=== PATIENT | female | born 1950 | race Caucasian/White ===

== ENCOUNTER 2017-01-22 05:40 | Day surgery (SDC) | payer MEDICARE ==
[2017-01-22] MEDS ORDERED: DIPRIVAN 10 MG/ML IV ONE (07:38)
[2017-01-22] MEDS ORDERED: WATER FOR IRRIG STERILE IR ONE (07:40)
[2017-01-22] MEDS ORDERED: XYLOCAINE 1% 20 mL ONE (07:45)
--- NOTE | 2017-01-22 07:57 | Discharge Summary ---
Providers - Providers Attending physician: ROSALIO LEE Primary care physician: NAT WANG Hospitalization Procedures: EGD Hospital course: 66 y.o. presented to out GI for an EGD. She tolerated the procedure well. Disposition: TO HOME OR SELFCARE Core Measure Documentation - Palliative Care Palliative Care/ Comfort Measures: Not Applicable - Core Measures Any of the following diagnoses?: none Exam - Physical Exam Narrative exam: no change from prior Plan Activity: no restrictions Diet: other (per bariatric plan) Follow up with: NAT WANG [Primary Care Provider] - 7 Days
--- NOTE | 2017-01-22 07:58 | Operative Report ---
Operative Report Operative Report: OPERATIVE REPORT - EGD DATE 01/22/17 SURGERY: Upper endoscopy. SURGEON: Zac Felipe M.D. FOOTBALL COACH: Sharon Ureña MD PRE OP DX: dyspepsia POST OP DX:hiatal hernia TYPE OF ANESTHESIA: MAC. ESTIMATED BLOOD LOSS: None. COMPLICATIONS: None. SPECIMENS REMOVED: None. FINDINGS: 1. Small hiatal hernia. 2. Otherwise, normal esophagus, stomach and first portion of duodenum. INDICATIONS:INDICATION FOR PROCEDURE: Patient is a 66-year-old female with a long history of morbid obesity. She is planned to have a weight loss procedure and is here for preoperative planning EGD. PROCEDURE DETAILS: After consent was reviewed, patient was taken back to the operating room where patient was placed in the left lateral decubitus position and a bite block was placed in the mouth. After a time-out was called, MAC anesthesia was initiated. I then passed the endoscope into her oropharynx, into her esophagus, visualized the entire esophagus, which was all within normal limits. I then visualized the stomach and the first portion of the duodenum and there were no abnormalities I could clearly visualize. I then retroflexed the scope in the stomach and visualized the hiatus and I could see a small hiatal hernia. I then desufflated the stomach and removed the endoscope. Patient tolerated procedure well and was transferred to recovery room in good and stable condition.
[2017-01-22] MEDS ORDERED: NACL 0.9% 1000 ML 1,000 ML IV SCH (08:00)
--- NOTE | 2017-01-22 08:03 | Anesthesia Day of Surgery ---
Anesthesia Day of Surgery - Day of Surgery Patient Examined: Yes Patient H&P Reviewed: Yes Patient is NPO: Yes
--- NOTE | 2017-01-22 08:03 | Anesthesia Consultation ---
Anesthesia Consult and Med Hx Date of service: 01/22/17 - Airway Anesthetic Teeth Evaluation: Good ROM Head & Neck: Adequate Mental/Hyoid Distance: Adequate Mallampati Class: Class II Intubation Access Assessment: Probably Good - Pulmonary Exam CTA: Yes - Cardiac Exam Cardiac Exam: RRR - Pre-Operative Health Status ASA Pre-Surgery Classification: ASA3 Proposed Anesthetic Plan: MAC - Pulmonary Hx Smoking: No Hx Sleep Apnea: Yes (mild) - Cardiovascular System Hx Hypertension: Yes Hx Heart Attack/AMI: No - Central Nervous System Hx Seizures: No CVA: No Hx Psychiatric Problems: No - Gastrointestinal Hx Gastroesophageal Reflux Disease: Yes - Endocrine Hx Renal Disease: No Hx Liver Disease: No Hx Insulin Dependent Diabetes: Yes - Other Systems Hx Alcohol Use: No Hx Substance Use: No Hx Cancer: No Hx Obesity: Yes - Additional Comments Anesthesia Medical History Comments: NAC
[2017-01-22 08:46] VITALS: BP 145/66
--- NOTE | 2017-01-22 08:58 | Post Anesthesia Evaluation ---
- Post Anesthesia Evaluation Patient Participated: Yes Airway Patent: Yes Stable Respiratory Function: Yes Nausea/Vomiting: No Temp > 96.8F: Yes Pain Manageable: Yes Adequeate Hydration: Yes Anesthesia Complications: No Block Receding Appropriately: Not Applicable Patient on Ventilator: No
== END 2017-01-22 05:41 | disposition home or self-care (01) ==
LOC: GIO 05:40
PROVIDERS: ATTEND Surgery
DX: K44.9 Diaphragmatic hernia without obstruction or gangrene (principal); E66.01 Morbid (severe) obesity due to excess calories; I10 Essential (primary) hypertension; K21.9 Gastro-esophageal reflux disease without esophagitis; E11.9 Type 2 diabetes mellitus without complications; Z79.4 Long term (current) use of insulin; Z68.37 Body mass index [BMI] 37.0-37.9, adult
CPT/HCPCS: 43235; 82962; J2704; J7030

== ENCOUNTER 2017-01-28 07:30 | Inpatient (IN) | payer MEDICARE ==
[2017-01-27 09:57] LABS: Basophils % (Auto) 0.5 % (0.0-1.8); Eosinophils % (Auto) 1.2 % (0.0-4.3); Hematocrit 40.4 % (30.3-42.9); Hemoglobin 13.5 gm/dl (10.1-14.3); Mean Corpuscular HGB Conc 33 % (30-34); Mean Corpuscular Hemoglobin 28 pg (28-32); Mean Corpuscular Volume 83 fl (79-97); Platelet Count 240 K/mm3 (140-440); Red Blood Count 4.87 M/mm3 (3.65-5.03); Red Cell Distribution Width 14.4 % (13.2-15.2); White Blood Count 5.7 K/mm3 (4.5-11.0)
[2017-01-27 10:05] LABS: Bacteria,Urine 1+ /HPF (Negative); Bilirubin,Urine NEG (Negative); Blood,Urine NEG (Negative); Ketones,Urine NEG (Negative); Leukocyte Esterase,Urine NEG (Negative); Mucus,Urine FEW /HPF; Nitrite,Urine NEG (Negative); Protein,Urine <15 mg/dL mg/dL (Negative); Urobilinogen,Urine < 2.0 mg/dL (<2.0); WBC,Urine < 1.0 /HPF (0.0-6.0)
--- NOTE | 2017-01-27 10:16 | Anesthesia Consultation ---
Anesthesia Consult and Med Hx Date of service: 01/27/17 - Airway Anesthetic Teeth Evaluation: Good (missing a few molars) ROM Head & Neck: Adequate Mental/Hyoid Distance: Adequate Mallampati Class: Class II Intubation Access Assessment: Probably Good - Pulmonary Exam CTA: Yes - Cardiac Exam Cardiac Exam: RRR - Pre-Operative Health Status ASA Pre-Surgery Classification: ASA3 Proposed Anesthetic Plan: General - Pulmonary Hx Smoking: No Hx Sleep Apnea: Yes ("mild", no CPAP machine prescribed) - Cardiovascular System Hx Hypertension: Yes (takes norvasc) - Central Nervous System Hx Psychiatric Problems: No - Endocrine Hx Non-Insulin Dependent Diabetes: Yes - Other Systems Hx Alcohol Use: No Hx Substance Use: No Hx Cancer: No Hx Obesity: Yes - Additional Comments Anesthesia Medical History Comments: Arthritis
[2017-01-27 10:18] LABS: BUN/Creatinine Ratio 21; Blood Urea Nitrogen 15 mg/dL (7-17); Carbon Dioxide 27 mmol/L (22-30); Glucose 86 mg/dL (65-100)
[2017-01-27 10:19] LABS: Alanine Aminotransferase 21 units/L (7-56); Albumin 4.2 g/dL (3.9-5); Albumin/Globulin Ratio 1.2 %; Alkaline Phosphatase 74 units/L (35-129); Anion Gap 17 mmol/L; Calcium 9.3 mg/dL (8.4-10.2); Chloride 104.6 mmol/L (98-107); Potassium 4.4 mmol/L (3.6-5.0); Sodium 144 mmol/L (137-145); Total Protein 7.8 g/dL (6.3-8.2)
[~2017-01-28 07:30] MED LIST: NACL 0.9% 1000 ML 1,000 ML IV SCH; PEPCID IV NR; VERSED IV NR
[2017-01-28] MEDS ORDERED: NACL BACTERIOSTATIC INFILTRATI ONE (09:35)
[2017-01-28] MEDS ORDERED: MYLICON PO PRN (10:40)
[2017-01-28] MEDS ORDERED: MORPHINE IV PRN (10:40)
[2017-01-28] MEDS ORDERED: DILAUDID IV PRN ×3 (10:40→14:23)
[2017-01-28] MEDS ORDERED: REGLAN IV PRN (10:40)
[2017-01-28] MEDS ORDERED: ZOFRAN IV PRN (10:40)
[2017-01-28] MEDS ORDERED: APRESOLINE IV PRN (10:40)
[2017-01-28] MEDS ORDERED: NORCO PO PRN (10:40)
[2017-01-28] MEDS ORDERED: D50W (25GM) Syringe IV PRN (10:44)
[2017-01-28] MEDS ORDERED: ANCEF/STERILE WATER 2 GM/20 ML 2 GM/20 ML SYRINGE IV NR (11:00)
[2017-01-28] MEDS ORDERED: TRANSDERM-SCOP TD NR (11:00)
[2017-01-28] MEDS ORDERED: FLAGYL 500 MG/100 ML 500 MG/100 ML BAG IV NR (11:00)
[2017-01-28] MEDS ORDERED: LOVENOX SUB-Q NR (11:00)
[2017-01-28] MEDS ORDERED: DIPRIVAN 10 MG/ML IV ONE (11:35)
[2017-01-28] MEDS ORDERED: SUBLIMAZE ONE (11:36)
[2017-01-28] MEDS ORDERED: QUELICIN ONE (11:40)
[2017-01-28] MEDS ORDERED: XYLOCAINE MPF 2% ONE ×2 (11:40→13:11)
[2017-01-28] MEDS ORDERED: ZEMURON IV ONE (11:40)
--- NOTE | 2017-01-28 12:16 | Anesthesia Day of Surgery ---
Anesthesia Day of Surgery - Day of Surgery Patient Examined: Yes Patient H&P Reviewed: Yes Patient is NPO: Yes
[2017-01-28] MEDS ORDERED: ePHEDrine SULFATE ONE (13:07)
[2017-01-28] MEDS ORDERED: NEO SYNEPHRINE ONE (13:10)
[2017-01-28] MEDS ORDERED: NEOSTIGMINE ONE (13:11)
[2017-01-28] MEDS ORDERED: ROBINUL ONE ×2 (13:11)
[2017-01-28] MEDS ORDERED: NACL 0.9% 100 ML ONE (13:11)
[2017-01-28] MEDS ORDERED: ZOFRAN ONE (13:24)
[2017-01-28] MEDS ORDERED: DECADRON ONE ×2 (13:24)
[2017-01-28] MEDS ORDERED: NACL 0.9% IR ONE ×2 (13:26→13:27)
[2017-01-28] MEDS ORDERED: MARCAINE-EPI/PF 0.5%-1:200,000 INFILTRATI ONE (13:27)
[2017-01-28] MEDS ORDERED: XYLOCAINE 1% 20 mL INFILTRATI ONE (13:27)
[2017-01-28] MEDS ORDERED: PROAIR IH ONE (13:36)
[2017-01-28] MEDS ORDERED: DILAUDID ONE (13:59)
--- NOTE | 2017-01-28 14:40 | Operative Report ---
Operative Report Operative Report: Operative Report DATE OF PROCEDURE: 01/28/17 SURGEON: Zac Felipe M.D. ATHLETIC COACH: Bryant Marie CSA PREOPERATIVE DIAGNOSIS: Morbid obesity. POSTOPERATIVE DIAGNOSES: Morbid obesity PROCEDURES PERFORMED: 1. Laparoscopic gastric bypass. 2. EGD. ANESTHESIA: General endotracheal tube intubation. SPECIMENS: None. ESTIMATED BLOOD LOSS: Less than 10 mL. FINDINGS: Normal anatomy. COMPLICATIONS: None. INDICATION: is a 66-year-old female with history of morbid obesity, history of diabetes and htn. She signed informed consent and expressed understanding of risks and benefits. DESCRIPTION OF PROCEDURE: Patient was brought to the OR suite, laid in supine position. Bilateral lower extremity SCDs were placed. General anesthesia was induced via successful endotracheal tube intubation. Patient's abdomen was prepped and draped in sterile fashion. Using Optiview technique, a 12-mm trocar was placed into the abdominal cavity under direct vision. There was noted to be no gross injury to any intraabdominal structures. 4 working trocars were placed under direct visualization, 12 mm in the right mid abdomen mid clavicular line and three 5-mm trocars in the right upper quadrant, epigastric, left upper quadrant and left mid abdomen. At this time, the ligament of Treitz identified and followed down approximately 30 cm and the jejunum was transected. The distal segment of jejunum was then traced for approximately 75 cm and a stable upby-mn-etuc jejunojejunostomy was performed. The common enterotomy was closed with 2 firings of the endoscopic stapler. The mesenteric defect was closed with running Surgidac suture. This anastomosis was found to be patent without kink, obstruction or bleeding. At this time, the patient was placed in steep reverse Trendelenburg position. A liver retractor was placed through the epigastric port to elevate the left lateral lobe of the liver. A small gastric pouch was formed. The Yash limb was then brought in an antegastric antecolic fashion and secured with 2 stay sutures to the gastric pouch. After this, the enterotomies were made with Harmonic scalpel, and a lbpt-dy-cydl stapled gastrojejunostomy was performed with a mechanical stapler. After this, a 2-layer running closure using absorbable v-lock suture were done, the first being mucosal approximation prior to completion of the first layer. The anesthesia passed and an EGD scope beyond the anastomosis to act as a stent. The first layer was completed, the second was then performed. After this, the EGD was retracted slightly. A bowel clamp was placed in a proximal Yash limb. The anastomosis was submerged under saline. Via intraluminal EGD insufflation, there was noted be no bubbles in the saline indicating an airtight anastomosis. There was noted to be no obstruction or bleeding intraluminally in the pouch or the anastomosis. At this time, the scope was removed. The saline was aspirated. Tiseel was placed over the anastomosis. All trocars were removed under direct visualization and the abdomen was then desufflated. The skin incisions were closed with 4-0 Monocryl followed by Dermabond dressings. Patient was awoken and taken to recovery in stable condition. All counts were correct.
[2017-01-28] MEDS: LACTATED RINGERS 1,000 ML IV SCH (17:35)
[2017-01-28] MEDS: ANCEF/NS 1 GM/50 ML 1 GM/50 ML BAG IV SCH (20:16)
[2017-01-28] MEDS: FLAGYL 500 MG/100 ML 500 MG/100 ML BAG IV SCH (20:18)
[2017-01-28] MEDS: TORADOL IV SCH (22:47)
[2017-01-29] MEDS: NOVOLOG SUB-Q SCH ×2 (00:17→00:19)
[2017-01-29] MEDS: LACTATED RINGERS 1,000 ML IV SCH ×2 (00:25→09:20)
[2017-01-29 04:32] LABS: Basophils % (Auto) 0.1 % (0.0-1.8); Hemoglobin 12.8 gm/dl (10.1-14.3); Mean Corpuscular HGB Conc 33 % (30-34); Mean Corpuscular Hemoglobin 28 pg (28-32); Mean Corpuscular Volume 85 fl (79-97); Platelet Count 229 K/mm3 (140-440); Red Blood Count 4.62 M/mm3 (3.65-5.03); Red Cell Distribution Width 14.5 % (13.2-15.2); White Blood Count 8.8 K/mm3 (4.5-11.0)
[2017-01-29] MEDS: FLAGYL 500 MG/100 ML 500 MG/100 ML BAG IV SCH (04:50)
[2017-01-29] MEDS: TORADOL IV SCH (04:50)
[2017-01-29 04:54] LABS: Alanine Aminotransferase 29 units/L (7-56); Albumin 3.7 g/dL (3.9-5); Albumin/Globulin Ratio 1.1 %; Alkaline Phosphatase 69 units/L (35-129); Anion Gap 17 mmol/L; BUN/Creatinine Ratio 11; Blood Urea Nitrogen 9 mg/dL (7-17); Calcium 8.9 mg/dL (8.4-10.2); Carbon Dioxide 25 mmol/L (22-30); Chloride 101.1 mmol/L (98-107); Glucose 157 mg/dL (65-100); Potassium 4.4 mmol/L (3.6-5.0); Sodium 139 mmol/L (137-145); Total Protein 7.1 g/dL (6.3-8.2)
[2017-01-29] MEDS: ANCEF/NS 1 GM/50 ML 1 GM/50 ML BAG IV SCH (06:22)
--- NOTE | 2017-01-29 07:57 | Discharge Summary ---
Providers - Providers Date of Admission: 01/28/17 08:08 Date of discharge: 01/29/17 Attending physician: ROSALIO LEE Primary care physician: BI REPORT DEVELOPER Hospitalization Condition: Good Procedures: lap gastric bypass Hospital course: pt had an uneventful gastric bypass. She remained afebrile with normal labs and vital signs. She was ambulating and tolerating liquids. Showing no clinical signs of leak or bleeding she was discharged to home. Disposition: DC-01 TO HOME OR SELFCARE Core Measure Documentation - Palliative Care Palliative Care/ Comfort Measures: Not Applicable - Core Measures Any of the following diagnoses?: none Exam - Constitutional Vitals: Temp Pulse Resp BP Pulse Ox 97.7 F 71 20 118/51 97 01/29/17 04:33 01/29/17 04:33 01/29/17 04:33 01/29/17 04:33 01/29/17 04:33 General appearance: Present: no acute distress, well-nourished - Respiratory Respiratory effort: normal - Extremities Extremities: no ischemia - Abdominal General gastrointestinal: Present: soft, other (incisions c/d/i, appropriatly tender to palpation) Plan Activity: advance as tolerated Weight Bearing Status: Full Weight Bearing Diet: other (sugar free clear liquids) Wound: open to air Special Instructions: record blood sugar diary Follow up with: PRIMARY CAREMD [Primary Care Provider] - 7 Days
[2017-01-29 08:32] VITALS: BP 119/64
[2017-01-29] MEDS ORDERED: LOVENOX SUB-Q SCH (10:00)
[2017-01-29] MEDS ORDERED: NORVASC PO SCH (10:00)
== END 2017-01-29 15:20 | disposition home or self-care (01) | DRG 621 ==
LOC: 3A 08:08 → 3B-SURG 15:08
PROVIDERS: ADMIT Surgery; ATTEND Surgery
PROC: 0D164ZA Bypass Stomach to Jejunum, Percutaneous Endoscopic Approach (ICD-10-PCS; principal; 2017-01-28)
DX: E66.01 Morbid (severe) obesity due to excess calories (principal); I10 Essential (primary) hypertension; M19.90 Unspecified osteoarthritis, unspecified site; E11.9 Type 2 diabetes mellitus without complications; K30 Functional dyspepsia; G47.30 Sleep apnea, unspecified; Z68.41 Body mass index [BMI] 40.0-44.9, adult; Z90.710 Acquired absence of both cervix and uterus
CPT/HCPCS: 36415; 80053; 81001; 82962; 83036; 85025; 93005; 93010; A4217; C9250; J0330; J0690; J1100; J1170; J1650; J1815; J1885; J2250; J2370; J2405; J2704; J2710; J2765; J3010; J7030; J7120